=== PATIENT | male | born 1995 | race Caucasian/White ===

== ENCOUNTER 2018-02-07 00:28 | Emergency (ER) | payer OTHER ==
[2018-02-07] MEDS ORDERED: TETRACAINE HCL 0.5% OPH SOLN 2 ML OU ONE (01:39)
[2018-02-07] MEDS ORDERED: KETOROLAC TROMETHAMINE 0.45% 4 DROP/0.4 ML DROPERETTE ONE (02:06)
--- NOTE | 2018-02-07 02:19 | ER Document Report ---
ED Eye Complaint - General Mode of Arrival: Ambulatory Information source: Patient TRAVEL OUTSIDE OF THE [place] IN LAST 30 DAYS: No <PARTH SMITH - Last Filed: 02/07/18 02:41> <LEAH RODRIGUEZ - Last Filed: 02/07/18 03:38> - General Chief Complaint: Eye Pain Stated Complaint: EYE PAIN Time Seen by Provider: 02/07/18 01:28 Notes: Patient is a 22-year-old male presenting the emergency department complaining of left eye pain onset approximately 6 hours ago. Patient states he was standing in his kitchen when he had a sudden onset of left eye pain. Patient describes his left eye pain as sharp and stinging. He states the pain is exacerbated with his opening his both his eyes. 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 Patient denies any foreign objects in his eye, wearing contacts or glasses, pain when pressing on eyes or blurry vision. (PARTH SMITH) - Related Data Allergies/Adverse Reactions: No Known Allergies Allergy (Unverified 02/07/18 03:02) Past Medical History - General Information source: Patient - Social History Smoking Status: Current Every Day Smoker Chew tobacco use (# tins/day): Yes Frequency of alcohol use: Rare Drug Abuse: None Patient has suicidal ideation: No Patient has homicidal ideation: No <PARTH SMITH - Last Filed: 02/07/18 02:41> - Social History Occupation: Active-duty [employer] Family History: Reviewed & Not Pertinent <LEAH RODRIGUEZ - Last Filed: 02/07/18 03:38> Review of Systems - Review of Systems Constitutional: No symptoms reported EENT: See HPI, Eye pain Cardiovascular: No symptoms reported Respiratory: No symptoms reported Gastrointestinal: No symptoms reported Genitourinary: No symptoms reported Male Genitourinary: No symptoms reported Musculoskeletal: No symptoms reported Skin: No symptoms reported Hematologic/Lymphatic: No symptoms reported Neurological/Psychological: No symptoms reported -: Yes All other systems reviewed and negative <PARTH SMITH - Last Filed: 02/07/18 02:41> Physical Exam - General General appearance: Appears well, Alert, Other - uncooperative In distress: None - HEENT Head: Normocephalic, Atraumatic Eyes: Normal, Tears - left Conjunctiva: Injected - left Cornea: Normal Pupils: PERRL Visual acuity- Right eye: 20/30 Visual acuity- Left eye: 20/50 Visual acuity- Both eyes: 20/40 - Extremities General upper extremity: Normal ROM General lower extremity: Normal ROM - Neurological Neuro grossly intact: Yes Cognition: Normal Orientation: AAOx4 Jud Coma Scale Eye Opening: Spontaneous Jud Coma Scale Verbal: Oriented Jud Coma Scale Motor: Obeys Commands Jud Coma Scale Total: 15 Speech: Normal - Psychological Associated symptoms: Normal affect, Normal mood - Skin Skin Temperature: Warm Skin Moisture: Dry Skin Color: Normal <PARTH SMITH - Last Filed: 02/07/18 02:41> - HEENT Cornea: No: Corneal abrasion, Corneal ulcer, Flourescein stain uptake Fundascopic: Normal. No: Retinal detachment, Retinal hemorrhage Visual louise normal: Yes - Respiratory Respiratory status: No respiratory distress Chest status: Nontender Breath sounds: Normal Chest palpation: Normal - Cardiovascular Rhythm: Regular Heart sounds: Normal auscultation Murmur: No - Abdominal Inspection: Normal Distension: No distension Bowel sounds: Normal Tenderness: Nontender Organomegaly: No organomegaly - Skin Skin Temperature: Warm Skin Moisture: Dry Skin Color: Normal <LEAH RODRIGUEZ - Last Filed: 02/07/18 03:38> - Vital signs Vitals: Temp Pulse Resp BP Pulse Ox 98.3 F 81 16 133/84 H 99 02/07/18 00:49 02/07/18 00:49 02/07/18 00:49 02/07/18 00:49 02/07/18 00:49 Course <PARTH SMITH - Last Filed: 02/07/18 02:41> <LEAH RODRIGUEZ - Last Filed: 02/07/18 03:38> - Re-evaluation Re-evalutation: 02/07/18 02:23 Called call center. States to call glue cook to set up an appointment for later today. (PARTH SMITH) 02/07/18 03:23 Patient is a 22-year-old male who comes in complaining of left eye pain, tearing , and photosensitivity. Denies getting anything in his eye. Visual acuity is 20/50 on the left side compared to 20/30 in right eye. Patient denies any trauma. No fluorescein uptake. Funduscopic exam difficult but appears relatively within normal limits. Symptoms and jagged pupil consistent with iritis. Patient feels better after ketorolac eyedrops. Discussed with Dr. Raines at [facility] and he will see the patient 715 this morning. This was communicated to the patient who will be able to keep this appointment. Return if worsening or concerning symptoms. (LEAH RODRIGUEZ) - Vital Signs Vital signs: Temp Pulse Resp BP Pulse Ox 98.2 F 74 18 129/74 H 98 02/07/18 03:11 02/07/18 03:11 02/07/18 03:11 02/07/18 03:11 02/07/18 03:11 Procedures - Eye Procedure Bilateral Alcaine Drops Administered: Yes Fluorescein applied: Left Slit lamp used: No <LEAH RODRIGUEZ - Last Filed: 02/07/18 03:38> - Eye Procedure Bilateral Notes: 02/07/18 03:36 Jamar-Pen use. 16 on right, 18 on left (LEAH RODRIGUEZ) Discharge <PARTH SMITH - Last Filed: 02/07/18 02:41> <LEAH RODRIGUEZ - Last Filed: 02/07/18 03:38> - Discharge Clinical Impression: Iritis of left eye Condition: Stable Disposition: HOME, SELF-CARE Instructions: Iritis ([facility]) Additional Instructions: You are to go to the Eye clinic on the 2nd floor of [facility] at 7:[address] morning to [address] Dr[address] Raines. Forms: Return to Work Scribe Attestation: 02/07/18 03:37 I personally performed the services described in the documentation, reviewed and edited the documentation which was dictated to the scribe in my presence, and it accurately records my words and actions. (LEAH RODRIGUEZ) Scribe Documentation - Scribe Written by Tcibe:: Mora Neil, 02/07/2018 02:21 acting as scribe for :: Eliz <PARTH SMITH - Last Filed: 02/07/18 02:41>
[2018-02-07] MEDS ORDERED: KETOROLAC TROMETHAMINE 0.45% 4 DROP/0.4 ML DROPERETTE OD ONE (03:06)
[2018-02-07 03:12] VITALS: BP 129/74
== END 2018-02-07 03:11 | disposition home or self-care (01) ==
LOC: ER 00:28
DX: H20.9 Unspecified iridocyclitis (principal); H57.12 Ocular pain, left eye; F17.220 Nicotine dependence, chewing tobacco, uncomplicated
CPT/HCPCS: 99283